=== PATIENT | male | born 1955 | race Hispanic/Latino ===

== ENCOUNTER 2021-12-10 08:17 | Emergency (ER) | payer BC ==
[2021-12-10] MEDS ORDERED: Acetaminophen 500 MG TAB ONE (10:38)
== END 2021-12-10 11:20 | disposition home or self-care (01) ==
LOC: ERS 08:17
DX: J02.9 Acute pharyngitis, unspecified (principal); I10 Essential (primary) hypertension; E78.5 Hyperlipidemia, unspecified
CPT/HCPCS: 87081; 87430; 99282